=== PATIENT | female | born 1965 | race Hispanic/Latino ===

== ENCOUNTER → 2022-10-10 | Day surgery (SDC) | payer OTHER ==
[~2022-10-10] MED LIST: AMLODIPINE BESY10 MG PO; CARVEDILOL12.5 MG PO; LEVOTHYROXINE75 MCG PO; LIDOCAINE HCL 2% LOCAL INJ 5 ML SDV VIAL INJ ONE; LIOTHYRONINE SO5 MCG PO; LOSARTAN POTAS100 MG PO; MAGNESIUM WITH ZINC PO; METOCLOPRAMIDE HCL 10 MG/2ML VIAL ONE; MIDAZOLAM HCL 2 MG/2 ML VIAL ONE; MOUNJARO12.5 MG/0.; ONDANSETRON HCL INJ 2MG/ML 2ML 2 MG/ML VIAL ONE; POVIDONE IODINE 0.05% 0.05 % ML PO ONE; PROPOFOL IV EMULSION 10 MG/ML 20 ML VIAL ONE; TURMERIC500 M1 PO; URSODIOL300 MG PO; VITAMIN C500 MG PO; VITAMIN D250 MCG PO; VITAMIN E400 UNI1 PO
[2022-10-10 10:45] VITALS: BP 133/82
== END | disposition home or self-care (01) ==
LOC: OR 07:52
PROVIDERS: ATTEND Internal Medicine Gastroenterology
DX: K62.5 Hemorrhage of anus and rectum (principal); D12.5 Benign neoplasm of sigmoid colon; K57.30 Diverticulosis of large intestine without perforation or abscess without bleeding; K64.8 Other hemorrhoids; K44.9 Diaphragmatic hernia without obstruction or gangrene; K74.3 Primary biliary cirrhosis; I10 Essential (primary) hypertension; Z88.1 Allergy status to other antibiotic agents; Z91.040 Latex allergy status; Z91.048 Other nonmedicinal substance allergy status; Z01.810 Encounter for preprocedural cardiovascular examination; Z79.899 Other long term (current) drug therapy; Z85.850 Personal history of malignant neoplasm of thyroid
CPT/HCPCS: 36415; 45385; 82948; 93005; J2001; J2250; J2405; J2704; J2765; 45378; 45380